=== PATIENT | female | born 1985 | race Caucasian/White ===

== ENCOUNTER 2018-03-03 12:01 | Emergency (ER) | payer BC ==
[2018-03-03] MEDS ORDERED: KETOROLAC 30 MG/ML 1 ML VIAL IVP STA (12:32)
[2018-03-03] MEDS ORDERED: SODIUM CHLORIDE 0.9% 1,000 ML IV ONE (12:32)
--- NOTE | 2018-03-03 12:32 | ED ---
Abdominal Pain HPI - General Chief Complaint: Abdominal Pain Stated Complaint: Abd Pain Time Seen by Provider: 03/03/18 12:23 Source: patient Mode of arrival: ambulatory Limitations: no limitations - History of Present Illness Initial Comments: Is a 32-year-old female with no past medical history who presents emergency department for abdominal pain. She states is been going on for the last 5 days. He seems to wax and wane in intensity. She states it feels like intense gas pain. She states that the pain does move all over the place. She states that currently it's in the right upper and right lower quadrant. She does admit to some nausea. States that she's having normal bowel movements. Does not to strain to go. No dark or bloody stools. She denies any dysuria or hematuria. No vaginal bleeding or discharge. She does have an IUD in place and does not recall her last menstrual period. She admits to chills. She denies any fevers. No sick contacts. She visited her nurse practitioner today who advised her to come emergency department for evaluation. She denies any other acute complaints. - Related Data Previous Rx's Medication Instructions Recorded Polyethylene Glycol 3350 [Miralax] 17 gm PO DAILY #255 gm 03/03/18 Allergies Allergy/AdvReac Type Severity Reaction Status Date / Time Penicillins Allergy Rash/Hives Verified 03/03/18 12:30 Review of Systems ROS Statement: Those systems with pertinent positive or pertinent negative responses have been documented in the HPI. ROS Other: All systems not noted in ROS Statement are negative. Past Medical History Past Medical History: No Reported History Additional Past Medical History / Comment(s): OB history: This is her first and she has had care with [facility] since 17 weeks. A+, abs neg, Rub Imm, RPR NR, Hep B neg, HIV NR, toxo neg, GBS +. normal 1hr GTT and normal anatomy US. History of Any Multi-Drug Resistant Organisms: None Reported Past Surgical History: Section Past Anesthesia/Blood Transfusion Reactions: No Reported Reaction Past Psychological History: No Psychological Hx Reported Smoking Status: Never smoker Past Alcohol Use History: Occasional Past Drug Use History: None Reported - Past Family History Father Family Medical History: No Reported History General Exam - General Exam Comments Initial Comments: Constitutional: Awake alert Appears comfortable Head: Normocephalic atraumatic Eyes: no conjunctival injection No scleral icterus EOMI Neck: No JVD Supple Heart: Regular rate rhythm normal S1-S2 no murmurs Lungs: Clear to auscultation bilaterally No wheezing No rales Abdomen: Soft abdomen is mildly distended tenderness in the right upper and right lower quadrants as well as the bilateral pelvic area and suprapubic region. She states that she generally has some mild tenderness however it is worse in the right upper and right lower quadrants. No rebound or guarding area and Extremities: Non edematous DP pulses intact Radial pulses intact Neuro: A&Ox3 No focal neurologic deficits Psych: Appropriate mood and affect Limitations: no limitations Course Vital Signs 03/03/18 12:25 Temperature 98.2 F Pulse Rate 86 Respiratory 18 Rate Blood Pressure 122/69 O2 Sat by Pulse 99 Oximetry Medical Decision Making - Medical Decision Making This is a 32-year-old female who presents emergency department for generalized abdominal pain worse in the right upper and right lower quadrants. The patient did have some minimal tenderness diffusely in her abdomen but did report worsening pain in the right upper and right lower quadrant. X-ray did show some mild stool burden throughout the colon. Labwork was reviewed and completely unremarkable. LFTs, lipase, and alk phos were all normal. No leukocytosis. No fevers or chills. The symptoms have been going on for 5 days. Unclear etiology of her symptoms however could be related to constipation. We'll start the patient on MiraLAX. I told her at this time I would not recommend a CAT scan because of the risk of radiation and given the normal lab work I do not feel that that risk is warranted at this time. The patient did have complete resolution of her pain after Toradol. I told her that she needs to keep a close eye on her symptoms and if she has any worsening or changing symptoms she needs to return promptly to the emergency Department. Otherwise she can follow-up with her primary doctor. All questions were answered. - Lab Data Result diagrams: 03/03/18 13:18 03/03/18 13:18 Lab Results 03/03/18 03/03/18 03/03/18 Range/Units 13:18 13: 14:02 WBC 7.2 (3.8-10.6) k/uL RBC 4.26 (3.80-5.40) m/uL Hgb 12.9 (11.4-16.0) gm/dL Hct 39.3 (34.0-46.0) % MCV 92.2 (80.0-100.0) fL MCH 30.2 (25.0-35.0) pg MCHC 32.7 (31.0-37.0) g/dL RDW 12.8 (11.5-15.5) % Plt Count 191 (150-450) k/uL Neutrophils % 66 % Lymphocytes % 25 % Monocytes % 6 % Eosinophils % 1 % Basophils % 0 % Neutrophils # 4.7 (1.3-7.7) k/uL Lymphocytes # 1.8 (1.0-4.8) k/uL Monocytes # 0.4 (0-1.0) k/uL Eosinophils # 0.1 (0-0.7) k/uL Basophils # 0.0 (0-0.2) k/uL Sodium 139 (137-145) mmol/L Potassium 3.8 (3.5-5.1) mmol/L Chloride 106 (98-107) mmol/L Carbon Dioxide 25 (22-30) mmol/L Anion Gap 8 mmol/L BUN 10 (7-17) mg/dL Creatinine 0.56 (0.52-1.04) mg/dL Est GFR (CKD-EPI)AfAm >90 (>60 ml/min/1.73 sqM) Est GFR (CKD-EPI)NonAf >90 (>60 ml/min/1.73 sqM) Glucose 67 L (74-99) mg/dL Calcium 9.3 (8.4-10.2) mg/dL Total Bilirubin 0.7 (0.2-1.3) mg/dL AST 18 (14-36) U/L ALT 25 (9-52) U/L Alkaline Phosphatase 37 L (38-126) U/L Total Protein 6.8 (6.3-8.2) g/dL Albumin 4.0 (3.5-5.0) g/dL Lipase 51 (23-300) U/L Urine Color Urine Appearance (Clear) Urine pH (5.0-8.0) Ur Specific [place] (1.001-1.035) Urine Protein (Negative) Urine Glucose (UA) (Negative) Urine Ketones (Negative) Urine Blood (Negative) Urine Nitrite (Negative) Urine Bilirubin (Negative) Urine Urobilinogen (<2.0) mg/dL Ur Leukocyte Esterase (Negative) Urine RBC (0-5) /hpf Urine WBC (0-5) /hpf Ur Squamous Epith Cells (0-4) /hpf Urine Mucus (None) /hpf Urine HCG, Qual Not Detected (Not Detectd) 03/03/18 Range/Units 14:02 WBC (3.8-10.6) k/uL RBC (3.80-5.40) m/uL Hgb (11.4-16.0) gm/dL Hct (34.0-46.0) % MCV (80.0-100.0) fL MCH (25.0-35.0) pg MCHC (31.0-37.0) g/dL RDW (11.5-15.5) % Plt Count (150-450) k/uL Neutrophils % % Lymphocytes % % Monocytes % % Eosinophils % % Basophils % % Neutrophils # (1.3-7.7) k/uL Lymphocytes # (1.0-4.8) k/uL Monocytes # (0-1.0) k/uL Eosinophils # (0-0.7) k/uL Basophils # (0-0.2) k/uL Sodium (137-145) mmol/L Potassium (3.5-5.1) mmol/L Chloride (98-107) mmol/L Carbon Dioxide (22-30) mmol/L Anion Gap mmol/L BUN (7-17) mg/dL Creatinine (0.52-1.04) mg/dL Est GFR (CKD-EPI)AfAm (>60 ml/min/1.73 sqM) Est GFR (CKD-EPI)NonAf (>60 ml/min/1.73 sqM) Glucose (74-99) mg/dL Calcium (8.4-10.2) mg/dL Total Bilirubin (0.2-1.3) mg/dL AST (14-36) U/L ALT (9-52) U/L Alkaline Phosphatase (38-126) U/L Total Protein (6.3-8.2) g/dL Albumin (3.5-5.0) g/dL Lipase (23-300) U/L Urine Color Yellow Urine Appearance Clear (Clear) Urine pH 5.5 (5.0-8.0) Ur Specific [place] 1.012 (1.001-1.035) Urine Protein Negative (Negative) Urine Glucose (UA) Negative (Negative) Urine Ketones Trace H (Negative) Urine Blood Trace H (Negative) Urine Nitrite Negative (Negative) Urine Bilirubin Negative (Negative) Urine Urobilinogen <2.0 (<2.0) mg/dL Ur Leukocyte Esterase Negative (Negative) Urine RBC 2 (0-5) /hpf Urine WBC 1 (0-5) /hpf Ur Squamous Epith Cells 4 (0-4) /hpf Urine Mucus Occasional H (None) /hpf Urine HCG, Qual (Not Detectd) Disposition Clinical Impression: Abdominal pain, Constipation Disposition: HOME SELF-CARE Condition: Stable Instructions: Abdominal Pain (ED) Prescriptions: Polyethylene Glycol 3350 [Miralax] 17 gm PO DAILY #255 gm Is patient prescribed a controlled substance at d/c from ED?: No Referrals: Lalo Griffin MD [Primary Care Provider] - 1-2 days
[2018-03-03 13:30] LABS: Basophils % (A) 0 %; Eosinophils # (A) 0.1 k/uL (0-0.7); Eosinophils % (A) 1 %; HCT 39.3 % (34.0-46.0); HGB 12.9 gm/dL (11.4-16.0); Lymphocytes # (A) 1.8 k/uL (1.0-4.8); Lymphocytes % (A) 25 %; MCH 30.2 pg (25.0-35.0); MCHC 32.7 g/dL (31.0-37.0); MCV 92.2 fL (80.0-100.0); Mean Platelet Volume 7.2; Monocytes # (A) 0.4 k/uL (0-1.0); Monocytes % (A) 6 %; Neutrophils # (A) 4.7 k/uL (1.3-7.7); Neutrophils % (A) 66 %; Platelet Count 191 k/uL (150-450); RBC 4.26 m/uL (3.80-5.40); RDW 12.8 % (11.5-15.5); WBC 7.2 k/uL (3.8-10.6)
[2018-03-03 13:39] LABS: ALT 25 U/L (9-52); AST 18 U/L (14-36); Alkaline Phosphatase 37 U/L (38-126); Anion Gap 8 mmol/L; Blood Urea Nitrogen 10 mg/dL (7-17); Calcium 9.3 mg/dL (8.4-10.2); Carbon Dioxide 25 mmol/L (22-30); Chloride 106 mmol/L (98-107); Glucose 67 mg/dL (74-99); Lipase 51 U/L (23-300); Potassium 3.8 mmol/L (3.5-5.1); Sodium 139 mmol/L (137-145); Total Bilirubin 0.7 mg/dL (0.2-1.3); Total Protein 6.8 g/dL (6.3-8.2)
--- NOTE | 2018-03-03 13:52 | XR ---
EXAMINATION TYPE: Acute abdominal series DATE OF EXAM: 03/03/2018 COMPARISON: NONE HISTORY: 32-year-old female with abdominal pain TECHNIQUE: Supine, upright, and left side down lateral decubitus views of the abdomen are obtained. FINDINGS: Frontal view of the chest shows normal heart size, aorta, and pulmonary vasculature. Strandy atelecta sis lower lungs. No consolidation or pleural effusion. No evidence for free intraperitoneal air. No dilated small bowel or air-fluid levels. Scattered air and stool seen throughout the colon extending distally to the rectum. There is only mil d stool burden. IUD is slightly high in position and obliqued towards the left. IMPRESSION: 1. No acute cardiopulmonary process. 2. No evidence for free air or bowel obstruction. 3. IUD is slightly high in position and obliqued towards the left. If there is concern for IUD migrat ion or malpositioning, pelvic ultrasound can further evaluate.
[2018-03-03 14:17] LABS: Appearance,Urine Clear (Clear); Bilirubin,Urine Negative (Negative); Blood,Urine Trace (Negative); Color,Urine Yellow; Glucose,Urine (UA) Negative (Negative); Ketones,Urine Trace (Negative); Leukocyte Esterase,Urine Negative (Negative); Mucus,Urine Occasional /hpf; Nitrite,Urine Negative (Negative); PH, Urine 5.5 (5.0-8.0); Protein,Urine Negative (Negative); RBC,Urine 2 /hpf (0-5); Specific Gravity,Urine 1.012 (1.001-1.035); Squamous Epithelial Cell,Urine 4 /hpf (0-4); Urobilinogen,Urine <2.0 mg/dL (<2.0); WBC,Urine 1 /hpf (0-5)
[2018-03-03 14:45] VITALS: BP 104/59; PULSE 71; RESP 16; TEMP 97.9
== END 2018-03-03 14:55 | disposition home or self-care (01) ==
LOC: EC 12:01
DX: K59.00 Constipation, unspecified (principal); R11.0 Nausea; Z97.5 Presence of (intrauterine) contraceptive device; Z88.0 Allergy status to penicillin
CPT/HCPCS: 36415; 80053; 83690; 85025; 81001; 81025; 74022; 99284; 96374; 96361; J1885

== ENCOUNTER 2023-07-19 11:22 | Observation (INO) | payer BC ==
[2023-07-19] MEDS ORDERED: SODIUM CHLORIDE 0.9% 1,000 ML IV STA (12:30)
[2023-07-19] MEDS ORDERED: diphenhydrAMINE 50 MG/ML 1 ML VIAL IVP STA (12:35)
[2023-07-19] MEDS ORDERED: PROCHLORPERAZINE INJ 10 MG/2 ML VIAL IVP STA (12:35)
--- NOTE | 2023-07-19 12:35 | ED ---
General Adult HPI - General Chief complaint: Neuro Symptoms/Deficit Stated complaint: headache-vision loss Time Seen by Provider: 07/19/23 12:25 Source: patient, RN notes reviewed, old records reviewed Mode of arrival: ambulatory Limitations: no limitations - History of Present Illness Initial comments: This is a 37-year-old female who presents to the emergency department stating that about 10 or 10:30 today she started getting some visual disturbances if she was looking through something with some squiggly lines and then she started to experience some numbness in her lip and her arm and her typical migraine headache began at that point. Patient states then she had difficulty comprehending what she was reading though she didn't know what the words were. Patient states she's had visual disturbance with previous migraines but never the tingling in the lip of the hand. Patient states currently all of her symptoms have resolved except the headache is now a 5 out of 10 because she took some medicine at home and there is very slight tingling of her upper lip on the right. She denies any fever chills patient denies any chest pain difficulty breathing first breath per patient denies any abdominal pain palpitations nausea vomiting diarrhea - Related Data Previous Rx's Medication Instructions Recorded polyethylene glycoL 3350 [Miralax] 17 gm PO DAILY #255 gm 03/03/18 Allergies Allergy/AdvReac Type Severity Reaction Status Date / Time Penicillins Allergy Rash/Hives Verified 03/03/18 12:30 Review of Systems ROS Statement: Those systems with pertinent positive or pertinent negative responses have been documented in the HPI. ROS Other: All systems not noted in ROS Statement are negative. Past Medical History Past Medical History: No Reported History Additional Past Medical History / Comment(s): OB history: This is her first and she has had care with me since 17 weeks. A+, abs neg, Rub Imm, RPR NR, Hep B neg, HIV NR, toxo neg, GBS +. normal 1hr GTT and normal anatomy US. History of Any Multi-Drug Resistant Organisms: None Reported Past Surgical History: Section Past Anesthesia/Blood Transfusion Reactions: No Reported Reaction Past Psychological History: No Psychological Hx Reported Smoking Status: Never smoker Past Alcohol Use History: Occasional Past Drug Use History: None Reported - Past Family History Father Family Medical History: No Reported History General Exam - General Exam Comments Initial Comments: GENERAL: Patient is well-developed and well-nourished. Patient is nontoxic and well- hydrated and is in mild stress. ENT: Neck is soft and supple. No significant lymphadenopathy is noted. Oropharynx is clear. Moist mucous membranes. Neck has full range of motion without eliciting any pain. EYES: The sclera were anicteric and conjunctiva were pink and moist. Extraocular movements were intact and pupils were equal round and reactive to light. Eyelids were unremarkable. PULMONARY: Unlabored respirations. Good breath sounds bilaterally. No audible rales rhonchi or wheezing was noted. CARDIOVASCULAR: There is a regular rate and rhythm without any murmurs gallops or rubs. ABDOMEN: Soft and nontender with normal bowel sounds. SKIN: Skin is clear with no lesions or rashes and otherwise unremarkable. NEUROLOGIC: Patient is alert and oriented x3. Cranial nerves II through XII are grossly intact. Motor and sensory are also intact. Normal speech, volume and content. Symmetrical smile. Finger to nose testing is normal bilaterally. NIH is 1 MUSCULOSKELETAL: Normal extremities with adequate strength and full range of motion. LYMPHATICS: No significant lymphadenopathy is noted PSYCHIATRIC: Normal psychiatric evaluation. Limitations: no limitations Course Vital Signs 07/19/23 07/19/23 07/19/23 11:49 12:33 13:04 Temperature 98.1 F 97.6 F Pulse Rate 71 67 78 Respiratory 18 16 18 Rate Blood Pressure 122/85 136/81 107/70 O2 Sat by Pulse 100 98 100 Oximetry Medical Decision Making - Medical Decision Making EKG is interpreted by myself. EKG is a sinus rhythm at 72 bpm CO interval 129 QRS is 91 QT interval is 392 QTC is 417. Patient's EKG shows no ST segment elevation or depression Was pt. sent in by a medical professional or institution (, PA, HOT TAMALE WORKER, urgent care, hospital, or halfway...) When possible be specific @ -No Did you speak to anyone other than the patient for history (EMS, parent, family, police, friend...)? What history was obtained from this source @ -No Did you review nursing and triage notes (agree or disagree)? Why? @ -I reviewed and agree with nursing and triage notes Were old charts reviewed (outside hosp., previous admission, EMS record, old EKG, old radiological studies, urgent care reports/EKG's, halfway records)? Report findings @ -No old charts were reviewed Differential Diagnosis (chest pain, altered mental status, abdominal pain women, abdominal pain men, vaginal bleeding, weakness, fever, dyspnea, syncope, headache, dizziness, GI bleed, back pain, seizure, CVA, palpatations, mental health, musculoskeletal)? @ -Differential CVA Ischemic stroke, hemorrhagic stroke, brain tumor, atypical migraine, Wernicke's encephalopathy, seizure, multiple sclerosis, meningitis, encephalitis, hypoglycemia, Guillain-Lezama, electrolytes disturbance, myasthenia gravis.... This is not meant to be an all-inclusive list EKG interpreted by me (3pts min.). @ -As above X-rays interpreted by me (1pt min.). @ -Chest x-ray shows no acute abnormality CT interpreted by me (1pt min.). @ -CT of the brain shows no acute abnormality. CT angiogram of the head and neck shows no acute abnormality U/S interpreted by me (1pt. min.). @ -None done What testing was considered but not performed or refused? (CT, X-rays, U/S, labs)? Why? @ -None What meds were considered but not given or refused? Why? @ -None Did you discuss the management of the patient with other professionals (professionals i.e. , PA, HOT TAMALE WORKER, lab, RT, psych nurse, social service director, marketing communications leader, teacher, community cultural development officer, case mgr)? Give summary @ -I spoke with and as he did want the patient admitted. I spoke with Dr. Son he agreed to admit the patient Was smoking cessation discussed for >3mins.? @ -No Was critical care preformed (if so, how long)? @ -No Were there social determinants of health that impacted care today? How? (Homelessness, low income, unemployed, alcoholism, drug addiction, transportation, low edu. Level, literacy, decrease access to med. care, fci, rehab)? @ -No Was there de-escalation of care discussed even if they declined (Discuss DNR or withdrawal of care, Hospice)? DNR status @ -No What co-morbidities impacted this encounter? (DM, HTN, Smoking, COPD, CAD, Cancer, CVA, ARF, Chemo, Hep., AIDS, mental health diagnosis, sleep apnea, morbid obesity)? @ -None Was patient admitted / discharged? Hospital course, mention meds given and route, prescriptions, significant lab abnormalities, going to OR and other pertinent info. @ -Patient's workup was essentially normal and her symptoms completely resolve however spoke with Dr. Campos he wanted the patient admitted I admitted the patient to Dr. Son and I consult the neurology Undiagnosed new problem with uncertain prognosis? @ -No Drug Therapy requiring intensive monitoring for toxicity (Heparin, Nitro, Insulin, Cardizem)? @ -No Were any procedures done? @ -No Diagnosis/symptom? @ -TIA Acute, or Chronic, or Acute on Chronic? @ -Acute Uncomplicated (without systemic symptoms) or Complicated (systemic symptoms)? @ -Complicated Side effects of treatment? @ -No Exacerbation, Progression, or Severe Exacerbation? @ -No Poses a threat to life or bodily function? How? (Chest pain, [place], [place], pneumonia, PE, COPD, DKA, ARF, appy, cholecystitis, CVA, Diverticulitis, Homicidal, Suicidal, threat to staff... and all critical care pts) @ -This could lead to a CVA and significant morbidity or mortality - Lab Data Result diagrams: 07/19/23 12:33 07/19/23 12:33 Lab Results 07/19/23 07/19/23 07/19/23 Range/Units 12:33 12:33 12:33 WBC 4.0 (3.8-10.6) k/uL RBC 4.59 (3.80-5.40) m/uL Hgb 13.9 (11.4-16.0) gm/dL Hct 40.4 (34.0-46.0) % MCV 88.0 (80.0-100.0) fL MCH 30.2 (25.0-35.0) pg MCHC 34.3 (31.0-37.0) g/dL RDW 12.8 (11.5-15.5) % Plt Count 193 (150-450) k/uL MPV 8.0 Neutrophils % 55 % Lymphocytes % 35 % Monocytes % 5 % Eosinophils % 1 % Basophils % 1 % Neutrophils # 2.2 (1.3-7.7) k/uL Lymphocytes # 1.4 (1.0-4.8) k/uL Monocytes # 0.2 (0-1.0) k/uL Eosinophils # 0.1 (0-0.7) k/uL Basophils # 0.0 (0-0.2) k/uL PT 10.7 (10.0-12.5) sec INR 1.0 (<1.2) APTT 25.3 (22.0-30.0) sec Sodium 138 (137-145) mmol/L Potassium 3.9 (3.5-5.1) mmol/L Chloride 104 (98-107) mmol/L Carbon Dioxide 23 (22-30) mmol/L Anion Gap 11 mmol/L BUN 14 (7-17) mg/dL Creatinine 0.66 (0.52-1.04) mg/dL Est GFR (CKD-EPI)AfAm >90 (>60 ml/min/1.73 sqM) Est GFR (CKD-EPI)NonAf >90 (>60 ml/min/1.73 sqM) Glucose 97 (74-99) mg/dL Calcium 9.3 (8.4-10.2) mg/dL Total Bilirubin 0.5 (0.2-1.3) mg/dL AST 25 (14-36) U/L ALT 20 (4-34) U/L Alkaline Phosphatase 52 (38-126) U/L Creatine Kinase 68 (30-135) U/L Troponin I (0.000-0.034) ng/mL Total Protein 7.6 (6.3-8.2) g/dL Albumin 4.7 (3.5-5.0) g/dL 07/19/23 Range/Units 12:33 WBC (3.8-10.6) k/uL RBC (3.80-5.40) m/uL Hgb (11.4-16.0) gm/dL Hct (34.0-46.0) % MCV (80.0-100.0) fL MCH (25.0-35.0) pg MCHC (31.0-37.0) g/dL RDW (11.5-15.5) % Plt Count (150-450) k/uL MPV Neutrophils % % Lymphocytes % % Monocytes % % Eosinophils % % Basophils % % Neutrophils # (1.3-7.7) k/uL Lymphocytes # (1.0-4.8) k/uL Monocytes # (0-1.0) k/uL Eosinophils # (0-0.7) k/uL Basophils # (0-0.2) k/uL PT (10.0-12.5) sec INR (<1.2) APTT (22.0-30.0) sec Sodium (137-145) mmol/L Potassium (3.5-5.1) mmol/L Chloride (98-107) mmol/L Carbon Dioxide (22-30) mmol/L Anion Gap mmol/L BUN (7-17) mg/dL Creatinine (0.52-1.04) mg/dL Est GFR (CKD-EPI)AfAm (>60 ml/min/1.73 sqM) Est GFR (CKD-EPI)NonAf (>60 ml/min/1.73 sqM) Glucose (74-99) mg/dL Calcium (8.4-10.2) mg/dL Total Bilirubin (0.2-1.3) mg/dL AST (14-36) U/L ALT (4-34) U/L Alkaline Phosphatase (38-126) U/L Creatine Kinase (30-135) U/L Troponin I <0.012 (0.000-0.034) ng/mL Total Protein (6.3-8.2) g/dL Albumin (3.5-5.0) g/dL Disposition Clinical Impression: Transient cerebral ischemia Disposition: ADMITTED IP TO THIS HOSP Referrals: None,Stated [Primary Care Provider] - 1-2 days Time of Disposition: 14:33
[2023-07-19 12:53] LABS: Partial Thromboplastin Time 25.3 sec (22.0-30.0); Prothrombin Time 10.7 sec (10.0-12.5)
[2023-07-19 12:59] LABS: Basophils % (A) 1 %; Eosinophils # (A) 0.1 k/uL (0-0.7); Eosinophils % (A) 1 %; HCT 40.4 % (34.0-46.0); HGB 13.9 gm/dL (11.4-16.0); Lymphocytes # (A) 1.4 k/uL (1.0-4.8); Lymphocytes % (A) 35 %; MCH 30.2 pg (25.0-35.0); MCHC 34.3 g/dL (31.0-37.0); Monocytes # (A) 0.2 k/uL (0-1.0); Monocytes % (A) 5 %; Neutrophils # (A) 2.2 k/uL (1.3-7.7); Neutrophils % (A) 55 %; Platelet Count 193 k/uL (150-450); RBC 4.59 m/uL (3.80-5.40); RDW 12.8 % (11.5-15.5)
--- NOTE | 2023-07-19 13:02 | CT ---
EXAMINATION TYPE: CT brain wo con DATE OF EXAM: 07/19/2023 COMPARISON: None HISTORY: 37-year-old female Neuro deficits, code stroke. diff reading, lip numbness, headache, and rt arm tingling starting approx 1 hour ago TECHNIQUE: Examination was done in axial plane without intravenous contrast. Coronal and sagittal r econstructions performed. CT DLP: 1099.4 mGycm Automated exposure control for dose reduction was used. FINDINGS: There is no evidence of acute intracranial hemorrhage, acute ischemic changes, mass, mass-effect, or extra-axial fluid collection. There is no effacement of cerebral sulci or basal subarachnoid cister ns. There is no hydrocephalus. There is no midline shift. Delgadillo-white matter distinction is preserv ed. Slight rightward nasal septal deviation. Trace mucosal thickening ethmoid air cells. Mastoid air cell s well pneumatized. Orbits and globes are intact. IMPRESSION: No acute intracranial abnormality seen.
[2023-07-19 13:08] LABS: ALT 20 U/L (4-34); AST 25 U/L (14-36); African American GFR (CKD) >90 (>60 ml/min/1.73 sqM); Albumin 4.7 g/dL (3.5-5.0); Alkaline Phosphatase 52 U/L (38-126); Anion Gap 11 mmol/L; Blood Urea Nitrogen 14 mg/dL (7-17); Calcium 9.3 mg/dL (8.4-10.2); Carbon Dioxide 23 mmol/L (22-30); Chloride 104 mmol/L (98-107); Creatine Kinase 68 U/L (30-135); Glucose 97 mg/dL (74-99); Non-African American GFR(CKD) >90 (>60 ml/min/1.73 sqM); Potassium 3.9 mmol/L (3.5-5.1); Sodium 138 mmol/L (137-145); Total Bilirubin 0.5 mg/dL (0.2-1.3); Total Protein 7.6 g/dL (6.3-8.2)
--- NOTE | 2023-07-19 13:09 | CT ---
EXAMINATION TYPE: CT angio head neck DATE OF EXAM: 07/19/2023 COMPARISON: CT brain same day HISTORY: 37-year-old female Neuro deficits, code stroke. diff reading, lip numbness, headache, and rt arm tingling starting approx 1 hour ago TECHNIQUE: Contiguous axial scanning of the head and neck performed with IV Contrast, patient injecte d with 65ml mL of Isovue 370. Coronal and sagittal reconstructions performed. 3-D reconstructions gen erated on a dedicated independent workstation. CT DLP: 533.5 mGycm Automated exposure control for dose reduction was used. FINDINGS: Neck: Conventional arch vessel branching anatomy. Vertebral arteries are codominant and patent throughout their course. Bilateral common and bilateral internal carotid arteries are widely patent. NASCET criteria is utilized. Head: The bilateral vertebral and basilar arteries are patent. There is persistent origin left flatware maker ior cerebral artery. The bilateral internal carotid arteries and remainder of the anterior circulation is patent. No aneurysmal changes identified. Dural venous sinuses are patent. IMPRESSION: 1. NECK: WIDELY PATENT VERTEBRAL AND CAROTID ARTERIES OF THE NECK. 2. 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 OTHERWISE, NO LARGE VESSEL INTRACR ANIAL ARTERIAL OCCLUSION, SIGNIFICANT STENOSIS, OR ANEURYSMAL CHANGE IS SEEN.
--- NOTE | 2023-07-19 13:28 | XR ---
EXAMINATION TYPE: XR chest 2V DATE OF EXAM: 07/19/2023 1:18 PM CLINICAL INDICATION:Female, 37 years old with history of altered mental status; [facility] COMPARISON: Chest radiographs from 07/19/2023. TECHNIQUE: XR chest 2V Frontal and lateral views of the chest. FINDINGS: Lungs/Pleura: There is no evidence of pleural effusion, focal consolidation, or pneumothorax. Pulmonary vascularity: Unremarkable. Heart/mediastinum: Cardiomediastinal silhouette is unremarkable. Musculoskeletal: No acute osseous pathology. Other findings: None IMPRESSION: No acute cardiopulmonary disease/process.
[2023-07-19] MEDS ORDERED: ASPIRIN 325 MG TAB PO STA (14:33)
--- NOTE | 2023-07-19 16:58 | P.CNNES ---
History of Present Illness Consult date: 07/19/23 Requesting physician: Ino Patel Reason for Consult: tia History of Present Illness: This is a 37-year-old woman who presented emergency department because of visual disturbance and numbness over the right face as well as right upper extremity. Currently the patient about 10 to 10:30 AM today she noticed that she had the visual disturbance she had blurry vision but did not know was one eye or both eyes then she knows headache in she could not describe the headache over the right side and then she felt she had difficulty reading thinks and the reading episode the difficulty lasted for about an hour and had numbness over the right lip and right arm. Also she felt that she is having some squiggly lines. She is unsure how long the entire episode that lasted but split couple hours. She had a similar episode of difficulty reading about possibly a year ago or 9 month ago. She denies any history of stroke or TIA or any history of multiple sclerosis. She feels she is back to baseline. She does have headaches with photophobia, phonophobia and feels nauseous but denies any official diagnosis of migraine. She feels she is back to baseline. Some of the workup during this hospital visit consisted of: CBC with differential is unremarkable chemistry panel is unremarkable CT of the head is reported as no acute intracranial abnormality seen. I personally reviewed CT and agree with report. 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 Otherwise no large vessel intracranial artery occlusion, significant stenosis or aneurysmal changes seen. EKG is reported as sinus rhythm. Normal EKG. NIH stroke scale by the ED was a 0. Stroke code was activated by the ED team. No IV thrombolytic since symptoms are resolved and the risk always the benefits. Review of Systems Review of system: The 12 point system was reviewed and apparent positive and negative per HPI. Past Medical History Past Medical History: No Reported History Additional Past Medical History / Comment(s): OB history: This is her first and she has had care with me since 17 weeks. A+, abs neg, Rub Imm, RPR NR, Hep B neg, HIV NR, toxo neg, GBS +. normal 1hr GTT and normal anatomy US. History of Any Multi-Drug Resistant Organisms: None Reported Past Surgical History: Section Past Anesthesia/Blood Transfusion Reactions: No Reported Reaction Past Psychological History: No Psychological Hx Reported Smoking Status: Never smoker Past Alcohol Use History: Occasional Past Drug Use History: None Reported - Past Family History Father Family Medical History: No Reported History Medications and Allergies Home Medications Medication Instructions Recorded Confirmed Type No Known Home Medications 07/19/23 07/19/23 History Allergies Allergy/AdvReac Type Severity Reaction Status Date / Time Penicillins Allergy Rash/Hives Verified 07/19/23 14:37 Physical Examination - Vital Signs Vital Signs: Vital Signs Temp Pulse Resp BP Pulse Ox 07/19/23 13:04 97.6 F 78 18 107/70 100 07/19/23 12:33 67 16 136/81 98 07/19/23 11:49 98.1 F 71 18 122/85 100 Intake and Output 07/19/23 07/19/23 07/19/23 06:59 14:59 22:59 Other: Weight 74.389 kg GENERAL: The patient is lying in bed and is not in acute distress. NEUROLOGICAL: Higher mental function: The patient is awake, alert, oriented to self, place and time. Patient is following commands. No aphasia and no neglect. Cranial nerves: The pupils are round, equal and reactive to light and accommodation. Visual dinero are full to confrontation throughout. Extraocular movement is intact no nystagmus is noted. Facial sensation is normal to touch throughout. The facial strength is normal throughout. Hearing is normal bilaterally to hand rub. Tongue is midline and moved [id number] without any difficulty. No dysarthria is noted. Shoulder shrug is normal bilaterally. Motor: The strength is 5 over 5 throughout. Normal tone and bulk. Cerebellum: Normal finger to nose bilaterally. Sensation: Sensation is normal to touch throughout. Reflexes (right/left): 2+ throughout. Plantars are downgoing bilaterally. Results - Laboratory Findings CBC and BMP: 07/19/23 12:33 07/19/23 12:33 Assessment and Plan Assessment: This is a 37-year-old woman who presented emergency department because of visual disturbance with blurry vision, numbness over the right lower face as well as right upper extremity with headache. She states that she has headaches and is seems the migraine features. CT of the head and CT angiography of the head and neck is negative. Patient's symptoms has resolved. Transient visual disturbance with numbness over the right face and upper extremity with headache. Probable complicated migraine. Cannot rule out TIA. Also rule out Multiple sclerosis. Underlying history of cephalgia and seems migraine Plan: The patient was given aspirin 325 once by the ED physician didn't was started on aspirin 325 daily. If MRI of the brain is negative and this seems consistent with a migraine and then no statin as needed but is otherwise we'll start her on statin for secondary stroke prophylaxis. I ordered MRI of the brain with and without as well as MRV. Ordered 2D echo, TSH, urine drug screen and test. Lipid panel is ordered and pending She was given Benadryl, Compazine by the ED team. Continue neuro checks Cardiac monitoring PT, OT and SEARCH STRATEGIST is consulted If patient continues to have migraine recommend starting her on prophylaxis medication. Will defer the rest of medical management to the primary team. The plan is discussed with patient and ED physician. Thank you for the consultation. Time with Patient: Greater than 30
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
[2023-07-19 21:19] LABS: Amphetamine Screen,Urine Not Detected (NotDetected); Barbiturate Screen,Urine Not Detected (NotDetected); Benzodiazepines Screen,Urine Not Detected (NotDetected); Cocaine Screen,Urine Not Detected (NotDetected); Methadone Screen, Urine Not Detected (NotDetected); Opiate Screen,Urine Not Detected (NotDetected); Oxycodone Screen, Urine Not Detected (NotDetected); Phencyclidine Screen,Urine Not Detected (NotDetected); Tricyclic Antidepressant,Urine Not Detected (NotDetected); Urn Cannabinoid Scrn Not Detected (NotDetected)
--- NOTE | 2023-07-20 01:38 | HP ---
HISTORY AND PHYSICAL HISTORY OF PRESENT ILLNESS: The patient came in with some atypical migraine with a headache. She gets headaches regularly, most likely a migraine. MRI and MR an of the brain are negative. Possible needed when she has new migraine medications like Nurtec or something for migraines so she has with chronic history of pressure with a trigger was. ALLERGIES: Penicillin. REVIEW OF SYSTEMS: A 14-point review of systems otherwise negative. FAMILY HISTORY: Negative. PHYSICAL EXAMINATION: VITAL SIGNS: Stable, afebrile. Temp 98.1, pulse 60 to 70, respiratory rate 16 to 18, blood pressure is 120s to 130s over 80s. GENERAL: Well developed, well nourished, no acute distress. NECK: Supple. No mass. HEART: S1, S2. LUNGS: Clear. GI: Soft. MUSCULOSKELETAL: Nontender cervical spine. LYMPH: No lymphadenopathy. PSYCH: Fair mood and affect. ABDOMEN: Soft, nontender. ASSESSMENT: Most likely atypical migraine. MRI, MRA of the brain is negative. SC EKG is normal. Rule out further workup, was cleared by Neurology. Sent home on possibly Nurtec or etc. Prognosis guarded. MMODL / IJN: [id number] /
[2023-07-20 08:24] VITALS: RESP 16; TEMP 98.3
[2023-07-20] MEDS ORDERED: ASPIRIN 325 MG TAB PO SCH (09:00)
--- NOTE | 2023-07-20 10:29 | CA ---
Transthoracic Echo Report Name: Haley Saucedo Age: 37 Gender: F : 1985 Exam Date: 07/20/2023 08:18 Exam Location: [facility] Ht (in): 63 Wt (lb): 164 Ordering Physician: Lasha Campos MD Attending/Referring Phys: Digital Producer Procedure CPT: Indications: STROKE. BUBBLE STUDY Cardiac Hx: Technical Quality: Good Contrast 1: Agitated Saline Total Dose (mL): 9 Contrast 2: Total Dose (mL): MEASUREMENTS (Male / Female) Normal Values 2D ECHO LV Diastolic Diameter PLAX 4.1 cm 4.2 - 5.9 / 3.9 - 5.3 cm LV Systolic Diameter PLAX 2.7 cm IVS Diastolic Thickness 0.9 cm 0.6 - 1.0 / 0.6 - 0.9 cm LVPW Diastolic Thickness 1.0 cm 0.6 - 1.0 / 0.6 - 0.9 cm LV Relative Wall Thickness 0.5 RV Internal Dim ED PLAX 3.2 cm LA Systolic Diameter LX 3.2 cm 3.0 - 4.0 / 2.7 - 3.8 cm LA Volume 34.3 cm??? 18 - 58 / 22 - 52 cm??? LA Volume Index 18.6 cm???/m??? 16 - 28 cm???/m??? M-MODE Aortic Root Diameter MM 2.9 cm MV E Point Septal Separation 0.3 cm AV Cusp Separation MM 2.3 cm DOPPLER AV Peak Velocity 105.0 cm/s AV Peak Gradient 4.4 mmHg MV Area PHT 4.0 cm??? Mitral E Point Velocity 84.7 cm/s Mitral A Point Velocity 68.0 cm/s Mitral E to A Ratio 1.2 MV Deceleration Time 189.6 ms MV E' Velocity 13.6 cm/s Mitral E to MV E' Ratio 6.2 TR Peak Velocity 194.9 cm/s TR Peak Gradient 15.2 mmHg Right Ventricular Systolic Press 20.2 mmHg FINDINGS Left Ventricle Left ventricular ejection fraction is estimated at 60-65 %. Left ventricular cavity size normal. Mildly increased posterior wall thickness. Right Ventricle Normal right ventricular size. Right ventricular systolic pressure within normal limits. Right Atrium Normal right atrial size. Negative agitated saline bubble study for right to left shunt. Left Atrium Normal left atrial size. Mitral Valve Structurally normal mitral valve. Trace mitral regurgitation. Aortic Valve Trileaflet aortic valve. No aortic valve stenosis or regurgitation. Tricuspid Valve Structurally normal tricuspid valve. Trace to mild tricuspid regurgitation. Pulmonic Valve Structurally normal pulmonic valve. No pulmonic regurgitation. Pericardium No pericardial effusion. Aorta Normal size aortic root and proximal ascending aorta. CONCLUSIONS Preserved LV size and systolic function Previewed by: Dr. Leonard Oquendo MD (Electronically Signed) Final Date: 20 July 2023 10:28
[2023-07-20 11:18] LABS: Chol/HDL Ratio 4.93 Ratio; LDL Cholesterol,Calculated 133.6 mg/dL (0.0-131.0)
[2023-07-20] MEDS ORDERED: SUMAtriptan succinate 50 MG TAB PO PRN (12:52)
[2023-07-20] MEDS ORDERED: TOPIRAMATE 25 MG TAB PO SCH (13:00)
--- NOTE | 2023-07-20 13:07 | P.PN ---
Subjective Progress Note Date: 07/20/23 I am following-up with patient and she feels she is back to baseline. She denies of any current headache today. She states usually headache is over the left hemisphere, throbbing, can last for > 4hours, has photophobia, phonophobia, with nausea and has to be in a dark quiet place. His mild headache are 5/10 but if gets worse can be 8 or more. They are becoming more frequent. She has not followed-up with PCP since old retired and has not seen neurologist. She does not have official diagnosis of migraine. Objective - Vital Signs Vital signs: Vital Signs Temp 98.3 F 07/20/23 08:05 Pulse 74 07/20/23 08:05 Resp 16 07/20/23 08:05 BP 108/57 07/20/23 08:05 Pulse Ox 97 07/20/23 09:00 FiO2 Intake & Output 07/19/23 07/20/23 07/20/23 18:59 06:59 18:59 Intake Total 10 240 Balance 10 240 Weight 74.389 kg 74.389 kg Intake: IV 10 0.9 10 Oral 240 Other: Voiding Method Toilet Toilet # Voids 1 - Exam GENERAL: The patient is lying in bed and is not in acute distress. NEUROLOGICAL: Higher mental function: The patient is awake, alert, oriented to self, place and time. Patient is following commands. No aphasia and no neglect. Cranial nerves: The pupils are round, equal and reactive to light and accommodat ion. Visual dinero are full to confrontation throughout. Extraocular movement is intact no nystagmus is noted. Facial sensation is normal to touch throughout. The facial strength is normal throughout. Hearing is normal bilaterally to hand rub. Tongue is midline and moved [id number] without any difficulty. No dysarthria is noted. Shoulder shrug is normal bilaterally. Motor: The strength is 5 over 5 throughout. Normal tone and bulk. Cerebellum: Normal finger to nose bilaterally. Sensation: Sensation is normal to touch throughout. Reflexes (right/left): 2+ throughout. Plantars are downgoing bilaterally. Some of the workup during this hospital visit consisted of: CBC with differential is unremarkable chemistry panel is unremarkable TSH: 0.758 Lipid panel: Triglyceride of 221, cholesterol is 223, LDLs 133 and HDL is 45. UDS is not detected. CT of the head is reported as no acute intracranial abnormality seen. I personally reviewed CT and agree with report. 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 Otherwise no large vessel intracranial artery occlusion, significant stenosis or aneurysmal changes seen. EKG is reported as sinus rhythm. Normal EKG. MRI Brain w/ and w/o: No significant abnormality seen. There is no acute ischemic event, mass effect or pathological enhancement. I personally reviewed the MRI and agree with the report. MRA head: Reported as no significant abnormality seen. 2D echo: Reported as preserved left ventricular size and systolic function. Normal left atrial size. - Labs CBC & Chem 7: 07/19/23 12:33 07/19/23 12:33 Labs: Abnormal Lab Results - Last 24 Hours (Table) 07/20/23 Range/Units 07:13 Triglycerides 221.00 H (0.00-149.00) mg/dL Cholesterol 223.00 H (0.00-200.00) mg/dL LDL Cholesterol, Calc 133.6 H (0.0-131.0) mg/dL VLDL Cholesterol, Calc 44.20 H (5.00-40.00) mg/dL Assessment and Plan Assessment: This is a 37-year-old woman who presented emergency department because of visual disturbance with blurry vision, numbness over the right lower face as well as right upper extremity with headache. She states that she has headaches and is seems the migraine features. CT of the head and CT angiography of the head and neck is negative. Patient's symptoms has resolved. Transient visual disturbance with numbness over the right face and upper extremity with headache. Likely complicated migraine. I cannot exclude TIA but feel unlikely. MRI Brain is negative. Underlying Migraine and was not on any medication or been evaluated for it. Dyslipidemia Plan: The patient was given aspirin 325 once by the ED physician started on aspirin 325mg daily. Because of patient dyslipidemia I started the patient on Lipitor 20 mg daily at bedtime. Recommend the retested her lipid panel down the line and we'll defer the management to the primary team. Pending test. Start the patient on Topamax 50 mg daily for 1 week for her migraines. She was notified by second week to go up to 50 mg twice a day. Patient was notified of side-effects of Topamax. I also notified the patient that a higher dose of Topamax can cause defect and recommended patient to be on dual contraceptive methods. I started the patient on Imitrex 50mg daily PRN for abortive of migraine. Continue neuro checks Cardiac monitoring PT, OT and FAST FOOD RESTAURANT MANAGER is consulted Will defer the rest of medical management to the primary team. I commended the patient to follow-up with a neurologist as an outpatient within 2 weeks. The plan is discussed with patient and her nurse. There is no further neurological work-up. Time with Patient: Less than 30
[2023-07-20 14:59] VITALS: BP 117/83; PULSE 69
--- NOTE | 2023-07-20 20:35 | PN ---
PROGRESS NOTE SUBJECTIVE: Echocardiogram was read, negative bubble study. Hormonal function, cleared by Neurology for discharge. She had no more headaches. OBJECTIVE: VITAL SIGNS: Stable. Blood pressure 108/57, pulse 74, respiratory rate 16, and O2 97. No neurologic findings seen. MRI of the brain. MRA of the brain negative. CAT scan is negative. Labs reviewed. Headache went away with aspirin in the ER and put her on Topamax for discharge medications. Follow up as an outpatient. PROGNOSIS: Guarded. MMODL / IJN: [id number] /
[2023-07-20] MEDS ORDERED: ATORVASTATIN 20 MG TAB PO SCH (21:00)
== END 2023-07-20 16:55 | disposition home or self-care (01) ==
LOC: EC 11:22 → 3SCARD 14:35
PROVIDERS: ADMIT Family Medicine; ATTEND Family Medicine
DX: H53.8 Other visual disturbances (principal); R20.0 Anesthesia of skin; R51.9 Headache, unspecified; E78.5 Hyperlipidemia, unspecified; Z88.0 Allergy status to penicillin
CPT/HCPCS: 96361; 96374; 96375; 99285; 36415; 94760; 93005; 93306; 97161; 97166; 80061; 80053; 84443; 82550; 84484; 85025; 85610; 85730; 80306; 71046; 70496; 70450; 70498; 70544; 70553; G0378 ×2; J1200; J0780; Q9967; A9585